=== PATIENT | female | born 1945 | race Caucasian/White ===

== ENCOUNTER → 2017-03-16 | Outpatient (CLI) | payer MEDICARE ==
[~2017-03-16] MED LIST: ACETAMINOPHEN PO; ACULAR 0.5% OP; AL-MAG HYDROX-S30 M1 PO; ALBUTEROL2.5 MG/0.5 NEB; AMITRYPTYLINE PO; APAP325 M1 PO; ASPIRIN EC81 M1 PO; ASPIRIN PO; ASPIRIN81 M2 PO; AUGMENTIN875 M1 PO; AUGMENTIN875 MG PO; AZITHROMYCIN500 MG PO; BENADRYL PO; BENADRYL25 MG PO; CEFTIN500 MG PO; CHEWABLE ASPIRI81 MG PO; COLACE PO; COMBIVENT U/D3 M2 INH; DALIRESP500 MCG PO; DEXAMETHASONE OD; FAMOTIDINE20 M1 PO; FLUOXETINE HCL20 M1 PO; GABAPENTIN600 MG PO; GLUCOPHAGE XR500 MG PO; GLUCOPHAGE500 M1 PO; GLUCOPHAGE500 MG PO; KLONOPIN1 MG PO; LASIX PO; LASIX20 MG PO; LORTAB 10/500 T1 TAB PO; LOVENOX40 MG/0.4 INJ; LOVENOX40 MG/0.4 SUBQ; LOW DOSE ASPIRI81 M1 PO; MEDROL PO; METFORMIN HCL500 M1 PO; METFORMIN HCL500 M2 PO; MILK OF MAGNESIA PO; NATURAL CALCIU500 M1 PO; NEURONTIN PO; NEURONTIN300 MG PO; NEURONTIN600 MG PO; NOVOLOG100 U/ML SUBQ; OMEPRAZOLE20 M2 PO; OMNICEF300 M1 PO; OXYCODONE HCL15 MG PO; OXYCODONE15 M1 PO; OXYCODONE15 MG PO; OXYGEN; OXYGEN INH; PEPCID AC20 M2 PO; PERCOCET 5-3251 TAB PO; PERCOCET10 PO; PERCOCET5/325 PO; PHENERGAN25 M1 PO; PRAVACHOL PO; PRAVACHOL20 MG; PRAVASTATIN SOD40 MG PO; PREDNISONE PO; PREDNISONE10 MG PO; PRILOSEC PO; PRILOSEC20 M1 PO; PROTONIX PO; PROZAC PO; PROZAC10 M1 PO; ROBAXIN PO; ROXICET 5-325 T1 TAB PO; ROXICODONE15 MG PO; SENNA-S TABLET1 EAC1 PO; SENNA8.6 M1 PO; SENNA8.6 M2; SENOKOT S1 TA1 PO; SIMVASTATIN20 MG PO; SPIRIVA18 MCG INH; SYMBICORT 160/4.6 GM IH; SYMBICORT 160/4.6 GM INH; SYMBICORT INH; TOBRAMYCIN OD; VIBRAMYCIN100 M1 PO; VICODIN PO; ZITHROMAX1 G/PKT PO; ZOCOR20 MG PO; ZOFRAN PO
--- NOTE | ~2017-03-16 | CT4 ---
[facility] A Service of [facility] & [facility] RADIOLOGY TEXT RESULTS PATIENT: SAADIA BERTRAND LOCATION: [facility] : 43 UNIT #: [id number] AGE: [address]: NATALIO BARRETO APRN SEX: F ORDER DR: [id number] [address] [address] [id number] O MR#: [id number] Acc #: [id number] NAME: SAADIA BERTRAND : 1945 SEX: F STUDY DATE/TIME: 03/16/2017 16:09 UNIT: [facility] ROOM: STUDY DESCRIPTION: CT Abd and Pelv Wo Cont Attending Physician: Ester Purcell Referring Physician: Ester Purcell Ordering Physician: Physician Non-Staff Primary Care Physician: Ester Purcell MEDICAL IMAGING REPORT This report is preliminary unless electronic signature is present. EXAM CT of the abdomen and pelvis without contrast. INDICATIONS Weight loss over 6 months, this is up to 23 pounds. Patient also reports pain throughout her abdomen for [address] images were obtained from the thoracic inlet through the dome of the diaphragm. No intravenous or oral contrast material is identified. Please note patient's CT of the chest will be dictated separately. This CT exam was performed with one or more of the following radiation dose reduction techniques: Automatic exposure control, adjustment of mA and/or kV according to patient size, and iterative reconstruction. FINDINGS Liver, gallbladder, spleen, stomach and proximal small bowel all appear unremarkable given unenhanced technique. Pancreas is mildly atrophic. Right adrenal gland and right kidney appear normal. 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 Left kidney is normal. 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 Patient does have extensive fecal burden noted throughout the colon; correlation with any history of constipation is recommended. Full assessment of structures within the pelvis is limited due to streak artifact from a left hip arthroplasty and intramedullary louie within the right femur. I do think the patient does have some scattered colonic diverticula without any evidence of diverticulitis. No definite free fluid or adenopathy is seen within the pelvis. Patient does appear to have some osteopenia. There is compression deformity at L1, which is new when compared to prior studies which is age indeterminate; correlation with history and point tenderness is recommended. [facility] A Service of [facility] & [facility] RADIOLOGY TEXT RESULTS PATIENT: SAADIA BERTRAND LOCATION: [facility] : 43 UNIT #: [id number] AGE: [address]: NATALIO BARRETO APRN SEX: F ORDER DR: IMPRESSION 1. No definite acute intraabdominal or intrapelvic process is seen to account for the patient's symptomatology. She is noted to have fairly extensive fecal burden throughout the colon and correlation with any history of constipation is suggested. 2. Advanced atherosclerotic involvement of the abdominal aorta with extension into the iliac vessels. 3. Mild stranding within the mesentery is nonspecific; similar findings were present in July 2015. Potentially, this may reflect the sequelae of some mesenteritis. 4. Patient has an L1 compression deformity, which is new when compared to prior studies. Correlation with history and point tenderness is suggested. If there is any doubt as to the acuity of this finding, it can be further assessed with bone scan or MRI. Dictated by... Cynthia Peña M.D. THIS IS AN ELECTRONICALLY VERIFIED REPORT Cynthia Peña M.D. at 03/19/2017 8:08 AM AFF/psc TD: 03/17/2017 23:54 JOB #: [id number] MEDICAL IMAGING REPORT Page 1 of 1
--- NOTE | ~2017-03-16 | CT57 ---
[facility] A Service of [facility] & [facility] RADIOLOGY TEXT RESULTS PATIENT: SAADIA BERTRAND LOCATION: [facility] : 43 UNIT #: [id number] AGE: [address]: NATALIO BARRETO APRN SEX: F ORDER DR: [id number] [address] [address] [id number] O MR#: [id number] Acc #: [id number] NAME: SAADIA BERTRAND : 1945 SEX: F STUDY DATE/TIME: 03/16/2017 16:09 UNIT: [facility] ROOM: STUDY DESCRIPTION: CT Chest Wo Cont Attending Physician: Ester Purcell Referring Physician: Ester Purcell Ordering Physician: Physician Non-Staff Primary Care Physician: Ester Purcell MEDICAL IMAGING REPORT This report is preliminary unless electronic signature is present. EXAM CT of the chest without contrast. INDICATIONS Weight loss of 23 pounds for 6 months. Patient also reports some pain in the abdomen for [address] of the abdomen and pelvis has been dictated separately. TECHNIQUE Axial CT images were obtained from the thoracic inlet through the dome of the diaphragm. No intravenous contrast material was administered. This CT exam was performed with one or more of the following radiation dose reduction techniques: Automatic exposure control, adjustment of mA and/or kV according to patient size, and iterative reconstruction. FINDINGS This patient has background emphysematous changes. There is mosaic attenuation seen throughout both lungs. This was also seen on the prior examination and certainly could reflect some nonspecific air trapping. There is a stable noncalcified pulmonary nodule seen within the left upper lobe. This has been unchanged since April 2014, and thus is benign. No additional subpleural nodule is seen within the left lower lobe, which is also probably not significantly changed when compared to the prior study. I do not see any suspicious pulmonary nodules or masses. The thyroid gland, trachea and esophagus appear unremarkable. There is no pleural or pericardial effusion. This patient has prominent mediastinal lymph nodes. For example, a lower right paratracheal node measures 1.8 x 1.7 cm, previously 2.2 x 2.2 cm. Again, overall adenopathy appears improved when compared to the prior study and is favored to be benign. There are coronary artery calcifications. [facility] A Service of [facility] RADIOLOGY TEXT RESULTS PATIENT: SAADIA BERTRAND LOCATION: [facility] : 43 UNIT #: [id number] AGE: [address]: NATALIO BARRETO APRN SEX: F ORDER DR: There is a stable peripherally calcified lesion within the left breast again felt to be benign. No aggressive osseous abnormalities are seen. There is compression deformity noted at L1, which is new when compared to the prior study from September 2016. This remains age indeterminate and correlation with history and point tenderness is suggested. The compression deformity at T7, however, is stable when compared to prior examinations. IMPRESSION 1. No intrathoracic process is identified to account for the patient's symptomatology. Background emphysematous changes are noted. The patient is noted to have 2 noncalcified pulmonary nodules seen within the left lung which have been stable since April 2014, and thus are benign. 2. Previously identified mediastinal and hilar adenopathy actually appears improved when compared to a September 2016 exam and is favored to be benign. 3. Compression deformity at L1 new when compared to a CT from September 2016. Correlation with history and point tenderness is suggested. If there is any doubt as to the acuity of this fracture, further evaluation with bone scan or MRI is recommended. Dictated by... Cynthia Peña M.D. THIS IS AN ELECTRONICALLY VERIFIED REPORT Cynthia Peña M.D. at 03/19/2017 7:32 AM AFF/psc TD: 03/18/2017 20:05 JOB #: [id number] MEDICAL IMAGING REPORT Page 1 of 1
== END | disposition home or self-care (01) ==
LOC: SMAM 03-13 08:45
DX: R63.4 Abnormal weight loss (principal); R63.0 Anorexia; I70.0 Atherosclerosis of aorta; G95.20 Unspecified cord compression; R91.8 Other nonspecific abnormal finding of lung field; R59.9 Enlarged lymph nodes, unspecified; Z87.891 Personal history of nicotine dependence
CPT/HCPCS: 71250; 74176